=== PATIENT | female | born 1985 | race Two or more races ===

== ENCOUNTER 2017-11-25 12:24 | Emergency (ER) | payer MEDICAID ==
[~2017-11-25] VITALS: Ht 165.1 cm; Wt 63.5 kg
[~2017-11-25 12:24] MED LIST: IBUPROFEN600 MG ORAL; METRONIDAZOLE500 MG ORAL; NKM
[2017-11-25 12:33] VITALS: BP 129/81
[2017-11-25] MEDS ORDERED: Acetaminophen 500mg (ES) tab ORAL ONE (12:45)
[2017-11-25] MEDS ORDERED: TYLENOL EXTRA500 MG ORAL (12:58)
--- NOTE | 2017-11-25 12:59 | Emergency Room Report ---
History of Present Illness General Chief Complaint: Pain Source: Patient Present Illness HPI 32 yo female patient presents ER complaining of jaw pain status post injury last night. Patient reports that she was sleeping and got kicked in the jaw by her child which awoke her from sleep. Patient denies vision changes or loss of consciousness. Patient reports concern that teeth may "come out", denies tooth pain. Denies losing any teeth. Denies other acute symptoms at this time. Denies taking any medication for pain. Patient denies malocclusion. denies difficulty with eating. Allergies: Coded Allergies: No Known Allergies (Unverified , 04/29/16) Patient History Past Medical History: see triage record Last Menstrual Period: IUD Reviewed Nursing Documentation: PMH: Agreed; PSxH: Agreed Nursing Documentation-PMH Past Medical History: No Stated History Review of Systems All Other Systems: negative except mentioned in HPI Physical Exam Vital Signs Date Time Temp Pulse Resp B/P (MAP) Pulse Ox O2 Delivery O2 Flow Rate FiO2 11/25/17 12:28 97.2 83 18 129/81 97 Room Air 97.2 Sp02 EP Interpretation: reviewed, normal General Appearance: well appearing, no apparent distress, alert, GCS 15, non- toxic Head: normocephalic, atraumatic, other - mild swelling at chin, no jaw or bite malaignment, no loose teeth, no gum swelling or erythema, no trismus, 4 cm opening ENT: hearing grossly normal, normal pharynx, no angioedema, normal voice, TMs + canals normal, uvula midline, moist mucus membranes, other - no loose teeth, no tenderness to palpation of teeth, no gum swelling or bruising, no erythema Neck: full range of motion Respiratory: lungs clear, normal breath sounds, no rhonchi, no respiratory distress, no accessory muscle use, no wheezing, speaking full sentences Cardiovascular #1: regular rate, rhythm, no edema Genitourinary: no CVA tenderness Musculoskeletal: back normal, digits/nails normal, gait/station normal, normal range of motion, non-tender Neurologic: alert, oriented x3, responsive, motor strength/tone normal, sensory intact Skin: no rash Medical Decision Making PA Attestation Dr. Baca is my supervising Physician whom patient management has been discussed with. Diagnostic Impression: Primary Impression: Chin contusion ER Course Pt presents to ED c/o chin pain. DDX considered but are not limited to laceration, abrasion, contusion, fracture , trismus. VITAL SIGNS are WNL, patient is afebrile Ordered pain medication. ED INTERVENTIONS: Physical exam shows mild swelling chin, no trismus, no ecchymosis or erythema changes in bite, no laceration, no jaw click. No loose teeth, low suspicion for alveolar fracture. Negative tongue blade test, does not need imaging of head at this time. Follow-up with dentist. Apply ice to chin for swelling. Take Tylenol for pain and swelling symptoms. ER precautions given. DISCHARGE: Rx provided for Tylenol At this time pt is stable for d/c to home. Patient resting comfortably, in no acute distress, nontoxic appearing, talking without difficulty. Will provide with patient care instructions and any necessary prescriptions. Patient to take medication as instructed. Care plan and follow-up instructions provided. Patient questions asked and answered. Patient reports understanding and agreement to treatment plan. ER precautions given. Patient instructed to return to ER immediately for any new or worsening of symptoms. - Please note that this Emergency Department Report was dictated using [employer] door assembler technology software, occasionally this can lead to erroneous entry secondary to interpretation by the dictation equipment. Last Vital Signs Date Time Temp Pulse Resp B/P (MAP) Pulse Ox O2 Delivery O2 Flow Rate FiO2 11/25/17 12:33 97.2 72 18 129/81 97 Room Air 97.2 Disposition: HOME, SELF-CARE Condition: Stable Scripts Acetaminophen* (TYLENOL EXTRA STRENGTH*) 500 Mg Tablet 500 MG ORAL Q8H PRN for Prn Headache/Temp > 101, #30 TAB 0 Refills Prov: Jah Gardner 11/25/17 Referrals: NOT CHOSEN IPA/,REFERRING (PCP) Patient Instructions: Jaw Contusion Additional Instructions: Followup with primary care provider in 3 -5 days. Follow-up with dentist. Take medications as directed. Patient questions asked and answered. ER precautions given, patient instructed to return to ER immediately for any new or worsening of symptoms. Jah Gardner November 25, 2017 12:59
[2017-11-25 13:03] VITALS: BP 129/81
== END 2017-11-25 13:05 | disposition home or self-care (01) ==
LOC: EMR 12:44
DX: S00.83XA Contusion of other part of head, initial encounter (principal); W51.XXXA Accidental striking against or bumped into by another person, initial encounter; Y92.009 Unspecified place in unspecified non-institutional (private) residence as the place of occurrence of the external cause
CPT/HCPCS: 99283

== ENCOUNTER 2018-05-21 09:30 | Emergency (ER) | payer MEDICAID ==
[~2018-05-21] VITALS: Ht 160 cm; Wt 63.5 kg
[~2018-05-21 09:30] MED LIST changes: +TYLENOL EXTRA500 MG ORAL
[2018-05-21] MEDS ORDERED: Metoclopramide 10mg/2ml Inj IVP ONE (10:00)
[2018-05-21] MEDS ORDERED: DiphenhydrAMINE 50mg/ml Inj IVP ONE (10:00)
--- NOTE | 2018-05-21 10:03 | Emergency Room Report ---
History of Present Illness General Chief Complaint: Abdominal Pain Source: Patient Present Illness HPI Patient present with complaints of epigastric discomfort Reports that about 5:00 in the morning she had woken up initially felt that she was hungry however after eating had increased nausea and vomited she has also had increased loose stool Denies any blood in the stool denies any chest pain or shortness of breath Patient asking to check her urine for as well Denies any flank pain Denies any rash She felt that the discomfort in the epigastric area has started to improve however again has returned Allergies: Coded Allergies: No Known Allergies (Unverified , 05/21/18) Patient History Past Medical History: see triage record Pertinent Family History: none Last Menstrual Period: IUD implanted Reviewed Nursing Documentation: PMH: Agreed; PSxH: Agreed Nursing Documentation-PMH Past Medical History: No Stated History Review of Systems All Other Systems: negative except mentioned in HPI Physical Exam Vital Signs Date Time Temp Pulse Resp B/P (MAP) Pulse Ox O2 Delivery O2 Flow Rate FiO2 05/21/18 09:35 99.3 126 16 107/64 100 Room Air Sp02 EP Interpretation: reviewed, normal General Appearance: well appearing, no apparent distress Head: normocephalic, atraumatic Eyes: bilateral eye PERRL, bilateral eye EOMI ENT: hearing grossly normal, normal pharynx, TMs + canals normal, uvula midline Neck: full range of motion, supple, no meningismus, no bony tend Respiratory: lungs clear, normal breath sounds, no rhonchi, no respiratory distress, no retraction, no accessory muscle use Cardiovascular #1: normal peripheral pulses, regular rate, rhythm, no edema, no gallop, no JVD, no murmur Gastrointestinal: normal bowel sounds, non tender - On palpation, however subjectively points to epigastric area, soft, no mass, no organomegaly, non- distended, no guarding, no hernia, no pulsatile mass, no rebound Genitourinary: no CVA tenderness Musculoskeletal: normal inspection Neurologic: oriented x3, responsive, network consultant III-XII nml as tested, motor strength/ tone normal, sensory intact Psychiatric: mood/affect normal Skin: normal color, no rash, warm/dry, palpation normal Lymphatic: normal inspection, no adenopathy Medical Decision Making Diagnostic Impression: Primary Impression: Abdominal pain ER Course With the patient's history and examination, multiple differentials considered, including but not limited to , ectopic , ovarian torsion, gastritis, cholecystitis, pancreatitis, appendicitis Patient's white blood cell count did come back somewhat elevated Given the vomiting and diarrhea there is some consideration for colitis however given the patient's discomfort CT imaging was obtained Please note that the patient has had previous appendectomy There was no obvious acute pathology on the CT And patient stable for close outpatient follow-up after significant improvement and repeat evaluation in the ER Labs Test 05/21/18 10:25 White Blood Count 15.4 K/UL (4.8-10.8) Red Blood Count 4.70 M/UL (4.20-5.40) Hemoglobin 14.1 G/DL (12.0-16.0) Hematocrit 40.9 % (37.0-47.0) Mean Corpuscular Volume 87 FL (80-99) Mean Corpuscular Hemoglobin 30.0 PG (27.0-31.0) Mean Corpuscular Hemoglobin Concent 34.5 G/DL (32.0-36.0) Red Cell Distribution Width 12.0 % (11.6-14.8) Platelet Count 247 K/UL (150-450) Mean Platelet Volume 6.5 FL (6.5-10.1) Neutrophils (%) (Auto) 83.0 % (45.0-75.0) Lymphocytes (%) (Auto) 10.1 % (20.0-45.0) Monocytes (%) (Auto) 6.2 % (1.0-10.0) Eosinophils (%) (Auto) 0.1 % (0.0-3.0) Basophils (%) (Auto) 0.6 % (0.0-2.0) Urine Color Pale yellow Urine Appearance Clear Urine pH 8 (4.5-8.0) Urine Specific [place] 1.010 (1.005-1.035) Urine Protein Negative (NEGATIVE) Urine Glucose (UA) Negative (NEGATIVE) Urine Ketones Negative (NEGATIVE) Urine Blood Negative (NEGATIVE) Urine Nitrite Negative (NEGATIVE) Urine Bilirubin Negative (NEGATIVE) Urine Urobilinogen Normal MG/DL (0.0-1.0) Urine Leukocyte Esterase 2+ (NEGATIVE) Urine RBC 0 /HPF (0 - 2) Urine WBC 2-4 /HPF (0 - 2) Urine Squamous Epithelial Cells Few /LPF (NONE/OCC) Urine Bacteria Occasional /HPF (NONE) Urine HCG, Qualitative Negative (NEGATIVE) Sodium Level 136 MMOL/L (136-145) Potassium Level 3.7 MMOL/L (3.5-5.1) Chloride Level 100 MMOL/L (98-107) Carbon Dioxide Level 27 MMOL/L (21-32) Anion Gap 9 mmol/L (5-15) Blood Urea Nitrogen 8 mg/dL (7-18) Creatinine 0.6 MG/DL (0.55-1.30) Estimat Glomerular Filtration Rate > 60 mL/min (>60) Glucose Level 95 MG/DL (74-106) Calcium Level 8.9 MG/DL (8.5-10.1) Total Bilirubin 0.7 MG/DL (0.2-1.0) Aspartate Amino Transf (AST/SGOT) 25 U/L (15-37) Alanine Aminotransferase (ALT/SGPT) 19 U/L (12-78) Alkaline Phosphatase 103 U/L (46-116) Total Protein 8.5 G/DL (6.4-8.2) Albumin 3.4 G/DL (3.4-5.0) Globulin 5.1 g/dL Albumin/Globulin Ratio 0.7 (1.0-2.7) Lipase 79 U/L (73-393) CT/MRI/US Diagnostic Results CT/MRI/US Diagnostic Results : Impression CT abdomen pelvisIMPRESSION: * Questionable thickening of the stomach as well as some nonspecific fluid attenuation and possible thickening of some small bowel loops. Findings are nonspecific and may potentially be reflective of a gastroenteritis in the appropriate clinical setting. * No evidence of small bowel obstruction. No free intraperitoneal air or fluid. * A few scattered colonic diverticula without evidence to suggest acute diverticulitis. * Appendix not definitively identified and may be surgically absent. Correlate with surgical history. No focal inflammatory stranding the right lower quadrant to suggest appendicitis. * IUD in place. * No CT evident gallstones or pericholecystic inflammatory change. * No hydronephrosis or urinary tract stones. Last Vital Signs Date Time Temp Pulse Resp B/P (MAP) Pulse Ox O2 Delivery O2 Flow Rate FiO2 05/21/18 09:35 99.3 126 16 107/64 100 Room Air Status: improved Disposition: HOME, SELF-CARE Condition: Improved Scripts Acetaminophen With Codeine (T#3) (TYLENOL #3 TAB*) Y Tab 1 TAB ORAL Q8H PRN for For Pain, #10 TAB Prov: Jael Rogel DO 05/21/18 Ondansetron (Zofran) 4 Mg Tablet 4 MG ORAL Q8H PRN for Nausea & Vomiting, #10 TAB 0 Refills Prov: Jael Rogel DO 05/21/18 Referrals: NON PHYSICIAN (PCP) Additional Instructions: Patient is provided with the discharge instructions notified to follow up with primary doctor in the next 2-3 days otherwise return to the er with any worsening symptoms. Please note that this report is being documented using [employer] technology. This can lead to erroneous entry secondary to incorrect interpretation by the dictating instrument. Jael Rogel DO May 21, 2018 10:03
[2018-05-21 10:28] VITALS: BP 109/72
[2018-05-21 10:48] LABS: APPEARANCE,URINE CLEAR; BASOPHILS % (AUTO) 0.6 % (0.0-2.0); BILIRUBIN, URINE NEGATIVE (NEGATIVE); COLOR,URINE PALE YELLOW; EOSINOPHILS % (AUTO) 0.1 % (0.0-3.0); GLUCOSE, URINE (UA) NEGATIVE (NEGATIVE); HEMATOCRIT 40.9 % (37.0-47.0); HEMOGLOBIN 14.1 G/DL (12.0-16.0); KETONES,URINE NEGATIVE (NEGATIVE); LEUKOCYTE ESTERASE ,URINE 2+ (NEGATIVE); LYMPHOCYTES % (AUTO) 10.1 % (20.0-45.0); MEAN CORPUSCULAR VOLUME 87 FL (80-99); MONOCYTES % (AUTO) 6.2 % (1.0-10.0); NITRITE,URINE NEGATIVE (NEGATIVE); PH,URINE 8 (4.5-8.0); PLATELET COUNT 247 K/UL (150-450); PROTEIN,URINE NEGATIVE (NEGATIVE); UROBILINOGEN,URINE NORMAL MG/DL (0.0-1.0); WHITE BLOOD COUNT 15.4 K/UL (4.8-10.8)
[2018-05-21 10:51] LABS: ANION GAP 9 mmol/L (5-15); BLOOD UREA NITROGEN 8 mg/dL (7-18); CALCIUM 8.9 MG/DL (8.5-10.1); CARBON DIOXIDE 27 MMOL/L (21-32); CHLORIDE 100 MMOL/L (98-107); CREATININE 0.6 MG/DL (0.55-1.30); POTASSIUM 3.7 MMOL/L (3.5-5.1); SODIUM 136 MMOL/L (136-145)
[2018-05-21 10:58] LABS: ALANINE AMINOTRANSFERASE 19 U/L (12-78); ALBUMIN 3.4 G/DL (3.4-5.0); ALBUMIN/GLOBULIN RATIO 0.7 (1.0-2.7); ALKALINE PHOSPHATASE 103 U/L (46-116); ASPARTATE AMINO TRANSFERASE 25 U/L (15-37); BILIRUBIN,TOTAL 0.7 MG/DL (0.2-1.0)
[2018-05-21] MEDS ORDERED: Isovue-300 100ml vial INJ PRN (11:00)
[2018-05-21 11:50] VITALS: BP 105/63
--- NOTE | 2018-05-21 12:17 | Diagnostic Imaging Report ---
Indication: Abdominal pain Technique: CT of the abdomen and pelvis utilizing automated exposure control with intravenous contrast. Venous scanning performed. Axial, sagittal and coronal reformats presented. CT dose: Total DLP 905.56 mGycm; CTDI vol 17.25 mGy Comparison: 04/29/2016 Findings: Mild dependent atelectasis noted in the lung bases. No pleural effusion or pneumothorax visualized. Heart size within normal limits. No pericardial effusion. Liver is normal in size and contour. No focal hepatic mass lesion is appreciated on this single phase exam. Hepatic veins and portal veins are patent. Gallbladder is without CT evident gallstones or pericholecystic inflammatory change. No biliary ductal dilatation. Spleen, adrenal glands and pancreas are unremarkable. Kidneys are symmetric in size and demonstrate symmetric enhancement. There is no urinary tract stone or hydronephrosis bilaterally. No perinephric stranding. The bladder is unremarkable in appearance. An intrauterine device is noted within the uterus. Some low-attenuation lesions are noted in the adnexa bilaterally, likely cysts. There is no free intraperitoneal air or fluid. There is no evidence of bowel obstruction. There is apparent thickening of the stomach may be related to underdistention. Nonspecific fluid attenuation and some nondilated loops of small bowel which may be within the realm of normal or may be related to gastroenteritis. A few scattered colonic diverticula are noted without evidence to suggest acute diverticulitis. Abdominal aorta is normal in caliber. No pathologically enlarged/conglomerate lymphadenopathy identified. No acute osseous abnormality. IMPRESSION: * Questionable thickening of the stomach as well as some nonspecific fluid attenuation and possible thickening of some small bowel loops. Findings are nonspecific and may potentially be reflective of a gastroenteritis in the appropriate clinical setting. * No evidence of small bowel obstruction. No free intraperitoneal air or fluid. * A few scattered colonic diverticula without evidence to suggest acute diverticulitis. * Appendix not definitively identified and may be surgically absent. Correlate with surgical history. No focal inflammatory stranding the right lower quadrant to suggest appendicitis. * IUD in place. * No CT evident gallstones or pericholecystic inflammatory change. * No hydronephrosis or urinary tract stones. [place] [facility] [place] [employer] and the scans are performed using protocols designed to limit radiation exposure to as low as reasonably achievable to attain images of sufficient resolution adequate for diagnostic evaluation.
[2018-05-21] MEDS ORDERED: ZOFRAN4 MG ORAL (12:28)
[2018-05-21] MEDS ORDERED: ACETAMINOPHEN-1 EAC1 ORAL (12:28)
[2018-05-21 12:47] VITALS: BP 96/65
== END 2018-05-21 12:49 | disposition home or self-care (01) ==
LOC: EMR 09:47
DX: R10.13 Epigastric pain (principal); R51 Headache
CPT/HCPCS: 36415; 74177; 80053; 81003; 81025; 83690; 85025; 96361; 96374; 96375; 99284; J1200; J2765; Q9967